=== PATIENT | female | born 1940 | race Caucasian/White ===

== ENCOUNTER 2018-02-12 09:43 | Observation (INO) | payer MEDICARE, OTHER ==
[2018-02-10 16:59] LABS: BASOPHILS # (AUTO) 0.1 (0.0-0.1); BASOPHILS % 0.6 % (0.0-1.0); EOSINOPHILS % 0.4 % (0.0-6.0); HEMATOCRIT 41.1 % (34.2-44.1); HEMOGLOBIN 13.9 g/dL (12.0-16.0); LYMPHOCYTES # (AUTO) 1.6 (1.0-3.2); LYMPHOCYTES % 15.6 % (18.0-39.1); MEAN CORPUSCULAR HEMOGLOBIN 32.6 pg (28-32); MEAN CORPUSCULAR HGB CONC 33.8 g/dL (31-35); MEAN CORPUSCULAR VOLUME 96.3 fL (81-99); MONOCYTES % 10.1 % (4.4-11.3); NEUTROPHILS # (AUTO) 7.5 (2.1-6.9); NEUTROPHILS % 72.9 % (38.7-80.0); PLATELET COUNT 286 x10e3/uL (140-360); RED BLOOD COUNT 4.27 x10e6/uL (3.6-5.1); RED CELL DISTRIBUTION WIDTH 12.8 % (11.7-14.4)
[2018-02-10 17:08] LABS: PROTHROMBIN TIME 12.4 seconds (11.9-14.5)
[2018-02-10 17:09] LABS: PARTIAL THROMBOPLASTIN TIME 23.8 seconds (23.8-35.5)
[2018-02-10 17:13] LABS: ANION GAP 13.7 mmol/L (8-16); BLOOD UREA NITROGEN 16 mg/dL (7-26); BUN/CREATININE RATIO 19 (6-25); CALCIUM 10.3 mg/dL (8.4-10.2); CARBON DIOXIDE 30 mmol/L (22-29); CHLORIDE 103 mmol/L (98-107); CREATININE, SERUM 0.84 mg/dL (0.57-1.11); EST GLOMERULAR FILTRATION RATE > 60 ML/MIN (60-); GLUCOSE 93 mg/dL (74-118); POTASSIUM 3.7 mmol/L (3.5-5.1); SODIUM 143 mmol/L (136-145)
--- NOTE | 2018-02-10 17:53 | Diagnostic Imaging Report ---
Examination: Single AP view of the chest. COMPARISON: None. INDICATION: Preoperative evaluation DISCUSSION: Lines/tubes: Sternotomy wires Lungs: The lungs are well inflated and clear. No pneumonia or pulmonary edema. Pleura: No pneumothorax. Heart and mediastinum: The heart and the mediastinum are unremarkable. Bones and soft tissues: No acute bony abnormalities. IMPRESSION: 1. No acute cardiopulmonary abnormalities. Signed by: Dr. Daren Ernandez M.D. on 02/10/2018 5:49 PM
[~2018-02-12] VITALS: Ht 157.5 cm; Wt 58.5 kg
[~2018-02-12 09:43] MED LIST: ACETAMINOPHEN 1000 MG/100 ML 100 ML IV ONE; AMLODIPINE BESYL5 MG PO; ASPIRIN81 MG PO; BACITRACIN 50,000 UNIT VIAL ONE; BUPIVACAINE 0.5%/EPI 30 ML SDV INJ ONE; CALCIUM CITRAT1 EAC4 PO; CLOPIDOGREL75 MG PO; GARLIC1000 MG PO; GELATIN SPONGE SZ 100 ONE; LIDOCAINE HCL (LTA) 4 ML SOLN ONE; LOSARTAN-HCTZ1 EACH PO; METOPROLOL SUCC50 MG PO; POTASSIUM CHLO20 ME1 PO; PREDNISONE5 G1 PO; PRIMIDONE50 MG PO; PROTONIX40 MG/ML PO; THROMBIN FOR SOLN 5,000 UNIT VIAL ONE; VIT D3 PO; VITAMIN B-121000 MCG PO; ZETIA10 MG PO
[2018-02-12] MEDS ORDERED: VITAMIN C1000 MG PO (09:56)
[2018-02-12] MEDS ORDERED: BENADRYL25 M1 PO (09:56)
[2018-02-12] MEDS ORDERED: RANITIDINE HCL150 M1 PO (09:56)
[2018-02-12] MEDS ORDERED: CEFAZOLIN SOD 1 GM VIAL ONE (10:07)
[2018-02-12] MEDS ORDERED: MORPHINE SULFATE 5 MG/ML VIAL IM PRN (11:45)
[2018-02-12] MEDS ORDERED: PROMETHAZINE HCL (IM) 25 MG/ML VIAL IM PRN (11:45)
[2018-02-12] MEDS ORDERED: ACETAMINOPHEN 325 MG TAB PO PRN (11:45)
[2018-02-12] MEDS ORDERED: MAGNESIUM/ALUMINUM/SIMETHICONE 30 ML UDC PO PRN (11:45)
[2018-02-12] MEDS ORDERED: CARISOPRODOL 350 MG TAB PO PRN (11:45)
[2018-02-12] MEDS ORDERED: HYDROMORPHONE 2MG/ML 2 MG/ML ML IV PRN (11:45)
[2018-02-12] MEDS ORDERED: CEPACOL SORE THROAT LOZENGES PO PRN (11:45)
[2018-02-12] MEDS ORDERED: MEPERIDINE HCL INJ 50 MG/ML INJ ONE (11:52)
[2018-02-12 12:15] VITALS: BP 178/80
[2018-02-12 13:14] VITALS: BP 178/80
[2018-02-12] MEDS ORDERED: CEFAZOLIN SOD 1 GM/D5W 50ML 50 ML IV SCH (14:00)
--- NOTE | 2018-02-12 14:07 | Operative Report ---
DATE OF PROCEDURE: February 12, 2018 PREOPERATIVE DIAGNOSIS: C5-6 spondylosis and foraminal stenosis with radiculopathy, M50.122. POSTOPERATIVE DIAGNOSIS: C5-6 spondylosis and foraminal stenosis with radiculopathy, M50.122. PROCEDURES 1. C5-C6 anterior cervical diskectomy, microsurgical osteophyte resection and allograft fusion, 62645. 2. Preparation of [employer] cortical cancellous allograft, 48589. 3. C5-6 anterior cervical plating with Synthes ZPN plate, [id number]. ANESTHESIA: General. INDICATIONS: Patient is a woman who presents with C5-6 spondylosis and foraminal stenosis. She was taken to the operating room for anterior cervical decompression and fusion. PROCEDURE: After the induction of general anesthesia, the patient was placed on the operating table in the supine position. The right side of the neck was prepped and draped in sterile fashion. The fluoroscopic C-arm was positioned in cross-table lateral orientation. A transverse incision was created on the right side of the neck superimposed on the C5-6 disk space as determined by fluoroscopy. The platysma was divided in line with the incision. A subplatysmal dissection was carried out. An avascular plane of dissection was developed medial to sternocleidomastoid muscle and was followed medial to the carotid sheath to the anterior border of the cervical spine. The deep cervical fascia was opened. The esophagus was retracted to the left. The attachments of the longus coli muscles to the anterolateral aspects of vertebral bodies of C5 and C6 were divided. The anterior longitudinal ligament was resected. [place] posts were inserted into C5 and C6, and the degenerated disk space was distracted. The contents of the disk were then thoroughly evacuated with curettes and pituitary rongeurs. The operating microscope was brought in. A high-speed drill equipped with a 5-mm cutting bur was used to simultaneously drill the superior and inferior endplates to re-establish the disk space height. Then the posterior osteophytes were meticulously drilled with a 2-mm cutting bur on a high-speed drill until they were completely removed. The posterior annulus of the disk, chronically herniated disk material and the posterior longitudinal ligament were resected layer by layer until the dura was fully exposed and decompressed. The medial aspects of the uncinate processes were resected bilaterally, with particular attention given to the right side to decompress the origins of the corresponding nerve roots. After satisfactory decompression had been achieved, the endplates were prepared for fusion. A piece of MTF cortical cancellous allograft measuring 7 mm in height was selected and loaded onto a [employer]ynthe[employer] ZPN plate. The construct was inserted into the C5-6 disk space under distraction and fluoroscopic guidance. The distraction was released, and the distraction posts were removed. The plate was then screwed to the endplates of C5 and C6 with 2 pairs of 14-mm screws. All screws were locked. An excellent construct was obtained. The wound was copiously irrigated with Bacitracin solution. Meticulous hemostasis was secured. Retractor was removed. The platysma was closed with 3-0 Vicryl sutures. The skin was closed with 4-0 Monocryl sutures in subcuticular fashion. Steri-Strips and dressing were applied. The patient was awakened, extubated and taken to the postanesthesia care unit in stable condition. No intraoperative complications were encountered. Estimated blood loss was 10 mL. Job#: [id number]
[2018-02-12] MEDS: LACTATED RINGER'S 1,000 ML IV SCH ×3 (15:45→22:43)
[2018-02-12 16:43] VITALS: BP 178/72
[2018-02-12] MEDS ORDERED: NON-FORMULARY MEDICATION (Ranitidine Hcl 150 MG) PO SCH (17:00)
[2018-02-12] MEDS: POTASSIUM CHLORIDE 20 MEQ TAB CR PO SCH (17:07)
[2018-02-12] MEDS: FAMOTIDINE 20 MG TAB PO SCH (17:07)
[2018-02-12] MEDS: CEFAZOLIN SOD 1 GM VIAL IV SCH (18:19)
[2018-02-12] MEDS ORDERED: FENTANYL CITRATE/PF 100MCG/2 ML INJ ONE (19:19)
[2018-02-12] MEDS ORDERED: GLYCOPYRROLATE INJ 1MG/ 5 ML SYR ONE (19:40)
[2018-02-12] MEDS ORDERED: NEOSTIGMINE 5 MG/5ML SYR ONE (19:40)
[2018-02-12] MEDS ORDERED: DEXAMETHASONE SOD PHOS INJ 4 MG/ML VIAL ONE (19:40)
[2018-02-12] MEDS ORDERED: DESFLURANE 240 ML BTL INH ONE (19:40)
[2018-02-12] MEDS ORDERED: ROCURONIUM BROMIDE 10 MG/ML 5ML VIAL ONE (19:40)
[2018-02-12] MEDS ORDERED: LIDOCAINE HCL 2% LOCAL INJ 5 ML SDV VIAL INJ ONE (19:40)
[2018-02-12] MEDS ORDERED: PROPOFOL IV EMULSION 10 MG/ML 20 ML VIAL ONE (19:40)
[2018-02-12] MEDS ORDERED: ONDANSETRON HCL INJ 2 MG/ML VIAL ONE (19:40)
[2018-02-12 20:00] VITALS: BP 166/79
[2018-02-12] MEDS ORDERED: ZOLPIDEM TARTRATE 5 MG TAB PO PRN (21:00)
[2018-02-12] MEDS: OXYCODONE/ACETAMINOPHEN 5-325 1 EACH TABLET PO PRN (21:15)
[2018-02-12] MEDS: ONDANSETRON HCL INJ 2 MG/ML VIAL IV PRN (21:20)
[2018-02-13] VITALS: BP 158/71
[2018-02-13 00:20] VITALS: BP 166/79
[2018-02-13] MEDS: OXYCODONE/ACETAMINOPHEN 5-325 1 EACH TABLET PO PRN ×2 (02:17→07:11)
[2018-02-13] MEDS: CEFAZOLIN SOD 1 GM VIAL IV SCH ×2 (02:17→09:33)
[2018-02-13 04:00] VITALS: BP 168/70
--- NOTE | 2018-02-13 05:51 | Diagnostic Imaging Report ---
C-SPINE 2 VIEWS AP LATERAL Comparison: None Clinical history: Status post neck surgery Findings: Straightening of the normal cervical lordosis with minimal anterolisthesis of C3 over C4, C4 over C5. Postsurgical change status post C5-6 anterior fusion and intervertebral disc. Degenerative disc disease is seen worse at C6-7. Prevertebral and right neck soft tissue swelling and gas related to recent surgery. Impression: Postsurgical changes status post C5-6 anterior fusion. Signed by: Dr Huong Villagran MD on 02/13/2018 5:48 AM
[2018-02-13 07:25] VITALS: BP 173/84
[2018-02-13] MEDS: FAMOTIDINE 20 MG TAB PO SCH (07:53)
[2018-02-13] MEDS: POTASSIUM CHLORIDE 20 MEQ TAB CR PO SCH (07:54)
[2018-02-13 08:51] VITALS: BP 168/71
[2018-02-13] MEDS: ONDANSETRON HCL INJ 2 MG/ML VIAL IV PRN (08:51)
[2018-02-13] MEDS ORDERED: NON-FORMULARY MEDICATION (Ascorbic Acid (Vitamin C) 1,000 MG) PO SCH (09:00)
[2018-02-13] MEDS ORDERED: VIT D3 PO SCH (09:00)
[2018-02-13] MEDS ORDERED: EZETIMIBE 10 MG TAB PO SCH (09:00)
[2018-02-13] MEDS ORDERED: CALCIUM CITRATE PO SCH (09:00)
[2018-02-13] MEDS ORDERED: [UNRECOGNIZED DRUG - OTHER] PO SCH (09:00)
[2018-02-13] MEDS ORDERED: LOSARTAN POTASSIUM 100 MG TAB PO SCH (09:00)
[2018-02-13] MEDS ORDERED: CHOLECALCIFEROL 1,000 UNIT TAB PO SCH (09:00)
[2018-02-13] MEDS ORDERED: VITAMIN D3 PO SCH (09:00)
[2018-02-13] MEDS ORDERED: PREDNISONE 5 MG TAB PO SCH (09:00)
[2018-02-13] MEDS ORDERED: AMLODIPINE BESYLATE 5 MG TAB PO SCH (09:00)
[2018-02-13] MEDS ORDERED: PRIMIDONE 50 MG TAB PO SCH (09:00)
[2018-02-13] MEDS ORDERED: DIPHENHYDRAMINE HCL 25 MG CAP PO SCH (09:00)
[2018-02-13] MEDS ORDERED: ASCORBIC ACID 500 MG TAB PO SCH (09:00)
[2018-02-13] MEDS ORDERED: OYST-CAL-D 500MG TABLET PO SCH (09:00)
[2018-02-13] MEDS ORDERED: NORCO 7.5-3251 EACH PO (09:49)
== END 2018-02-13 10:40 | disposition home or self-care (01) ==
LOC: OR 09:43 → PACU V 11:36 → MED/SURG 12:54
PROVIDERS: ADMIT Neurological Surgery; ATTEND Neurological Surgery
DX: M50.122 Cervical disc disorder at C5-C6 level with radiculopathy (principal); I10 Essential (primary) hypertension; E78.5 Hyperlipidemia, unspecified; I25.10 Atherosclerotic heart disease of native coronary artery without angina pectoris; R00.1 Bradycardia, unspecified; Z95.1 Presence of aortocoronary bypass graft; Z01.810 Encounter for preprocedural cardiovascular examination; Z01.812 Encounter for preprocedural laboratory examination; Z01.811 Encounter for preprocedural respiratory examination
CPT/HCPCS: 20931; 22551; 22845; 36415; 71046; 72040; 77003; 80048; 85025; 85610; 85730; 86850; 86900; 88304; 93005; 96374; 96376; G0378 ×2; J0690 ×2; J1100; J2001; J2175; J2405 ×2; J2550; J3490; J7120; J7512; J2270